=== PATIENT | female | born 1995 | race African-American/Black ===

== ENCOUNTER 2017-07-08 17:56 | Emergency (ER) | payer BC ==
[2017-07-08 19:02] LABS: BHCG - Serum POSITIVE (NEGATIVE); Pregs Control Background? CLEAR/WHITE (CLR/WHITE); Pregs Control Bar Appear? YES (CONTROL BAR)
[2017-07-08 19:33] LABS: Bilirubin Negative (Negative); Blood, Urine Negative (Negative); Clarity CLEAR (Clear); Glucose, Urine (Dipstick) Negative (Negative); Leukocyte Moderate (Negative); Nitrite Positive (Negative); Protein, Urine (Dipstick) Negative (Neg-Trace); Specific Gravity, Urine 1.022 (1.002-1.036); Urobilinogen 0.2 mg/dL (0.2-1.0)
[2017-07-08 19:36] LABS: Bacteria/HPF 4+ HPF (None Seen); Hyaline Casts/LPF 0-3 HYALINE CAST LPF (0-3 Hyaline); RBC/HPF 0-3 HPF (0-3); Squamous Epithelial 0-3 HPF (0-3); WBC/HPF 21-50 HPF (0-3)
--- NOTE | 2017-07-08 20:13 | ULT ---
PELVIC ULTRASOUND 07/08/17 COMPARISON: None. HISTORY: 21-year-old female with bleeding. TECHNIQUE: Multiplanar sun scale sonographic imaging of the pelvis obtained with transabdominal and endovaginal imaging. Ovaries are assessed with color flow and spectral analysis. FINDINGS: Uterus measures 8.5 x 4.6 x 5.0 cm. There is an intrauterine gestational sac demonstrating a po le and a yolk sac. Right ovary measures 3.8 x 1.8 x 2.2 cm and left ovary measures 3.5 x 2.3 x 2.2 cm. Blood flow is not ed within both ovaries. There is a right ovarian cyst measuring up to 1.7 cm. Trace free fluid noted in the pelvic cul-de-sac. There is a heterogeneous area of decreased echogenic ity adjacent to the gestational sac, suggesting a subchorionic hemorrhage, measuring in the 1.1 x 1.2 cm range. Dexigraph Operator demonstrates a heart rate of approximately 77, evidence of bradyca rdia, a concerning finding. BIOMETRY: CRL 0.3 cm 5 weeks, 6 days GSD 0.9 cm 5 weeks, 5 days Average aged based on ultrasound is 5 weeks, 6 days with an estimated date of delivery on 03/04/18. IMPRESSION: Intrauterine gestation noted. Subchorionic hemorrhage present. bradycardia is noted, with estim ated heart rate of 77 bpm, a concerning finding. Close followup advised. POS: [facility]
== END 2017-07-08 20:36 | disposition home or self-care (01) ==
LOC: ERS 17:56
DX: O20.0 Threatened abortion (principal); O23.41 Unspecified infection of urinary tract in pregnancy, first trimester; O98.711 Human immunodeficiency virus [HIV] disease complicating pregnancy, first trimester; Z3A.01 Less than 8 weeks gestation of pregnancy
CPT/HCPCS: 36415; 76856; 81003; 81015; 84702; 84703; 86900; 86901; 87077; 87086; 87186

== ENCOUNTER 2017-12-27 20:20 | Day surgery (SDC) | payer SELFPAY ==
[2017-12-27 21:07] VITALS: BMI 25.5
[2017-12-27] MEDS ORDERED: Lactated Ringer's 1,000 ML IV SCH (21:30)
--- NOTE | 2017-12-27 21:31 | PDOC.LDHP ---
Labor and Delivery H&P Chief complaint: other (vaginal bloody dsch when wipes, no recent trauma, no recent sex. known HIV pos patient (sees Dr Camarena)) HPI: 22 yo G1 at 30 weeks 2 days by EDC, known HIV positive of "medication"...blood only with wiping. Good FM, no CTX, no recent sex, no trauma. patient has full handwritten H&P in chart as well. review of systems: complete ROS completed and as per HPI Current gestational age (weeks): 30 (2) Dating criteria: last menstrual period Grav: 1 Para: 0 Current complications: other (HIV positive..sees Dr camarena. On meds but does not know name) Abnormal US findings: No Current medications: pre-jenn vitamins, other (HIV "pill") Previous surgical history: none Allergies/Adverse Reactions: Allergies Allergy/AdvReac Type Severity Reaction Status Date / Time No Known Allergies Allergy Verified 12/27/17 21:09 Social history: none - Physical Exam Vital signs reviewed and normal: yes General: NAD Heart: RRR Lungs: CTAB Abdomen: gravid Extremeties: no edema FHT: category 1 (Accels and reactive per EGA) [place] contractions every: irritability - Assessment HIV Positive, vag bleed with wiping..no menstrual type bleed, no clots passed...no evidence of VB now, nor on FFN swab collected - Plan Plan: observation in L&D (I have ordered 1 liter LR bolus for hydration. FFN and cervical length ordered. If suspicious for PTL by test results, we will give celestone and IV mag for neuroprotection...and consider AZT IV if suspected real PTL. We will await FFN and cervical length result. Info given to patient at bedside.)
[2017-12-27 21:52] LABS: FFN Internal QC Analyzer PASS (PASS); FFN Internal QC Cassette PASS (PASS); Fetal Fibronectin Negative (Negative)
--- NOTE | 2017-12-27 22:58 | PDOC.EVN ---
Event Note - Event Note Event Note: FFN neg, and cervical length verbal report from tech=3.5cm OK for outpatient care
--- NOTE | 2017-12-28 07:38 | ULT ---
OBSTETRICAL ULTRASOUND: DATE: 12/27/17. HISTORY: A 22-year-old female, assess cervical length. TECHNIQUE: Multiplanar, sun scale sonographic imaging of the gravid uterus obtained. FINDINGS: Cervical length is 2.7-3.3 cm. Single intrauterine gestation is present with a heart rate of 1 31 b.p.m. Amniotic fluid index is 19 cm. The placenta is located posteriorly and demonstrates no evidence for previa or abruption. position is vertex. BIOMETRY: BPD 7.2 cm, 28 weeks 6 days HC 26.1 cm, 28 weeks 3 days AC 24.8 cm, 29 weeks 0 days FL 5.7 cm, 29 weeks 6 days Average age based on ultrasound is 29 weeks 0 days with estimated date of delivery on 03/14/18. Elodia mated weight is 1361 gm +/- 201 gm. Imaged intracranial contents, spine, bladder, umbilical cord, stomach, heart, kidneys, and umbi lical cord insertion appear grossly unremarkable. nose and lips are within normal limits. IMPRESSION: Single live intrauterine gestation as detailed above. Cervical length is approximately 2.7-3.3 cm. POS: [facility]
== END 2017-12-27 23:12 | disposition home or self-care (01) ==
LOC: EEVIPCON 20:20 → L&D/OP 20:20
PROVIDERS: ATTEND Family Medicine
DX: O46.93 Antepartum hemorrhage, unspecified, third trimester (principal); O98.713 Human immunodeficiency virus [HIV] disease complicating pregnancy, third trimester; Z3A.30 30 weeks gestation of pregnancy; Z21 Asymptomatic human immunodeficiency virus [HIV] infection status
CPT/HCPCS: 76815; 82731; 96360; 96361; 99283

== ENCOUNTER 2018-02-22 21:08 | Day surgery (SDC) | payer OTHER ==
[2018-02-22 21:56] VITALS: BMI 26.5
--- NOTE | 2018-02-22 22:04 | PDOC.LDHP ---
Labor and Delivery H&P Chief complaint: loss of fluid HPI: Patient of Dr Shaw Possible LOf x1 at 1700, none since Known HIV positive, on medication, sees Dr mtz HPI: 22 yo G1 at 38 weeks 3 days with possible LOf X 1. Known HIV positive DX in 2016, on meds. No HERNÁNDEZ, no VB, no CTX Current gestational age (weeks): 38 (3 days) Due date: 03/05/18 Grav: 1 Current complications: other (HIV) Abnormal US findings: No Current medications: pre- vitamins, other (HIV meds...Name unknown) Previous surgical history: none Allergies/Adverse Reactions: Allergies Allergy/AdvReac Type Severity Reaction Status Date / Time No Known Allergies Allergy Verified 02/22/18 22:01 - Physical Exam Vital signs reviewed and normal: yes (131/87) General: NAD Heart: RRR Lungs: CTAB Abdomen: gravid (soft, NT) Extremeties: no edema FHT: category 1 [place] contractions every: irritability - Assessment HIV positive at early term with LOF X 1..amnisure sent - Plan Plan: observation in L&D (Sterile speculum exam to be performed by me. if positive, will require HIV intrapartum prophylaxis and viral load check. Will contact Zaid if admitted.)
[2018-02-22 22:16] LABS: Amnisure Test No Membranes Rupture (No Rupture)
[2018-02-22 22:17] LABS: Amnisure Internal Control QC ACCEPTABLE (ACCEPTABLE)
--- NOTE | 2018-02-22 22:20 | PDOC.EVN ---
Event Note - Event Note Event Note: amnisure is negative
--- NOTE | 2018-02-22 22:36 | PDOC.EVN ---
Event Note - Event Note Event Note: SSE with no pooling, no leakage with cough. visually 1cm at max. 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 This was explained to pt. No evidence ROM on exam and negative. I encouraged her to conitinue to take her HAART
== END 2018-02-22 22:45 | disposition home or self-care (01) ==
LOC: L&D/OP 21:08
PROVIDERS: ATTEND Family Medicine
DX: O99.89 Other specified diseases and conditions complicating pregnancy, childbirth and the puerperium (principal); N89.8 Other specified noninflammatory disorders of vagina; N88.8 Other specified noninflammatory disorders of cervix uteri; O98.713 Human immunodeficiency virus [HIV] disease complicating pregnancy, third trimester; Z21 Asymptomatic human immunodeficiency virus [HIV] infection status; Z3A.38 38 weeks gestation of pregnancy; Z79.899 Other long term (current) drug therapy
CPT/HCPCS: 84112; 99285

== ENCOUNTER 2018-03-03 05:32 | Inpatient (IN) | payer OTHER ==
[2018-03-03 06:12] VITALS: BMI 26.9
[2018-03-03 06:45] LABS: Amnisure Test RUPTURE DETECTED (No Rupture)
[2018-03-03 06:46] LABS: Amnisure Internal Control QC ACCEPTABLE (ACCEPTABLE)
[2018-03-03] MEDS ORDERED: SODIUM CHLORIDE IVPB SCH (07:45)
[2018-03-03] MEDS ORDERED: ADMIXTURE FEE IVPB SCH (07:45)
[2018-03-03] MEDS ORDERED: ZIDOVUDINE IVPB SCH (07:45)
[2018-03-03] MEDS ORDERED: Promethazine HCl 25 MG/ML VIAL IM PRN ×2 (08:13→09:47)
[2018-03-03] MEDS ORDERED: Ondansetron HCl/PF 4 MG/2 ML Vial IVP PRN ×4 (08:13→13:17)
[2018-03-03] MEDS ORDERED: CEFAZOLIN/Water 2 GM/20 ML SYRINGE SLOW IVP SCH (08:15)
[2018-03-03] MEDS ORDERED: Lactated Ringer's 1,000 ML IV SCH ×2 (08:15→13:17)
[2018-03-03] MEDS ORDERED: Bicitra 30 ML UDCUP PO SCH (08:15)
[2018-03-03] MEDS ORDERED: Morphine PF 1 MG/ML SYR ONE (08:29)
[2018-03-03 08:30] LABS: Hemoglobin 8.9 g/dL (12.0-16.0); Mean Corpuscular HGB CONC 32.5 g/dL (32.0-36.0); Mean Corpuscular Hemoglobin 28.6 pg (25.0-35.0); Mean Platelet Volume 8.9 fL (7.4-10.4); Platelet Count 235 thou/uL (130-400); RBC Distribution Width 12.2 % (11.5-14.5); Red Blood Cell (RBC) Count 3.11 mill/uL (4.00-5.20); White Blood Cell (WBC) Count 7.2 thou/uL (4.8-10.8)
[2018-03-03] MEDS ORDERED: Ketorolac Tromethamine 30 MG/ML VIAL ONE ×2 (08:30→17:05)
[2018-03-03] MEDS ORDERED: PHENYLEPHRINE-NS 100 MCG/ML 10 ML SYRINGE ONE ×2 (08:30→17:05)
[2018-03-03] MEDS ORDERED: Oxytocin 10 UNITS/ML VIAL ONE (08:30)
[2018-03-03] MEDS ORDERED: Ondansetron HCl/PF 4 MG/2 ML Vial ONE ×2 (08:30→17:05)
[2018-03-03] MEDS ORDERED: ePHEDrine/0.9% NaCl/PF SYRINGE 50 mg/10 ml ONE (08:30)
[2018-03-03] MEDS ORDERED: Lidocaine 2% 10 ML INJ ONE (08:31)
[2018-03-03] MEDS ORDERED: Bupivacaine 0.75% W/DEXTROSE 8.25% 2 ML AMP ONE (08:31)
[2018-03-03 09:05] LABS: HBSAg Index 0.21 S/CO (0-0.99); Hep B Surf Ag Non-Reactive S/CO (NonReactive); Syphilis Antibody Nonreactive (Nonreactive); Syphilis Antibody Index 0.11 S/CO (<1.00 Non-Reactive)
[2018-03-03] MEDS: SODIUM CHLORIDE 0.9% IVPB SCH ×2 (09:20→14:37)
[2018-03-03] MEDS: ZIDOVUDINE IVPB SCH ×2 (09:20→14:37)
[2018-03-03] MEDS ORDERED: Promethazine HCl 25 MG SUPP PR PRN (09:47)
[2018-03-03] MEDS ORDERED: Naloxone HCl 0.4 mg/ml Vial IVP PRN ×2 (09:47)
[2018-03-03] MEDS ORDERED: Meperidine HCl/PF 25 MG/ML VIAL SLOW IVP PRN (09:47)
[2018-03-03] MEDS ORDERED: L&D-Morphine 4 MG/ML VIAL SLOW IVP PRN (09:47)
[2018-03-03] MEDS ORDERED: HYDROmorphone 2 MG/ML VIAL SLOW IVP PRN (09:47)
[2018-03-03] MEDS ORDERED: Eucerin (Mineral Oil/Petrolatum,White) 30 gm Jar TOP PRN (09:47)
[2018-03-03] MEDS ORDERED: Naloxone HCl 0.4 mg/ml Vial IV PRN (09:47)
[2018-03-03] MEDS ORDERED: Ketorolac Tromethamine 30 MG/ML VIAL IVP SCH (10:00)
[2018-03-03] MEDS ORDERED: Communication Order-Pharmacy FS SCH (10:00)
--- NOTE | 2018-03-03 10:29 | PDOC.OPDEL ---
OB Operative/Delivery Note Delivery Dr/Surgeon: Colin Assist: Mario Pre-Delivery Diagnosis: other (SROM with high HIV viral load) Procedure/Post Delivery Dx: primary low transverse CS Anesthesia: spinal - Findings A Sex: female Weight: 2.843 kg - 1 min: 8 - 5 min: 9 - Additional Findings/Plan Placenta delivered: manual removal findings: low transverse hysterotomy without extension, normal uterus, normal tubes, normal ovaries Compilations/Other Findings: Procedure Note Date of Procedure: 03/03/2018 Primary Surgeon: Colin Unit Director Surgeon: Mario Procedure: Primary low transverse section Preoperative Diagnosis: 1)Term intrauterine 2)High viral load HIV Postoperative Diagnosis: 1)same as above Anesthesia: spinal Indications: The patient is a 22 year old G1,P0 female at 39.4 weeks gestation who presented with pre-labor rupture of membranes. Patient is HIV with viral load >4000. Decision was made to proceed with delivery. Procedure in Detail: After risks, benefits, and alternatives were explained to the patient, she gave informed consent. Pre-operative antibiotics included Cefazolin 2 gram IV. Patient was also given 103 mg of Zidovudine. The patient was taken to the operating room and spinal anesthesia was initiated. She was placed in the supine position with a left tilt and prepped and draped in usual sterile fashion. A Pfannenstiel incision was made with a scalpel and carried down to the level of the fascia which was sharply nicked. The fascial cut was extended bilaterally with Chen sissors. The inferior and superior edges of the cut fascial edges were elevated with Tejas clamps and the underlying rectus muscles were sharply and bluntly dissected free. The recti were divided digitally and retracted manually. The peritoneum was entered bluntly and retracted manually. Bladder blade was placed. A low transverse score was made with the scalpel and the uterus was entered in the midline with the scalpel. Clear fluid was seen. The hysterotomy was extended manually. The infant was noted to be vertex and was easily delivered by fundal pressure. Mouth and nares were bulb suctioned. Cord clamped and cut and grossly normal female was handed to waiting nurse. Cord segment and cord blood was obtained. Placenta was manually extracted, found to be intact with 3 vessel cord and discarded. The uterus was externalized and the endometrium was curetted with a dry lap. The bladder blade was replaced and the uterus was closed with a running locking 0-Vicryl. Following this hemostasis was noted. The abdomen was irrigated with saline and suctioned free of clots. The uterus was internalized and the hysterotomy was again noted to be hemostatic. The peritoneum was closed with 3-0 Vicryl. The fascia was closed with a running non- locking 0-PDS suture. The subcutaneous tissue was irrigated and there were no bleeders. The subcutaneous layer was closed using 3-0 Vicryl. The skin was approximated with rose and a pressure dressing was placed. All counts were correct. The patient tolerated the procedure well and was taken to the recovery room in stable condition. QBL: Complications: None Specimens: Cord blood and cord segment sent to lab for blood type Findings: Grossly normal female with apgars of 8 and 9. Grossly normal placenta with 3 vessel cord discarded. Drains: Zamorano to gravity draining clear urine Post delivery plan: routine recovery
[2018-03-03] MEDS ORDERED: Naloxone HCl 0.4 mg/ml Vial ONE (11:07)
[2018-03-03] MEDS ORDERED: diphenhydrAMINE 50 MG/ML VIAL ONE (11:08)
[2018-03-03] MEDS: diphenhydrAMINE 50 MG/ML VIAL IVP PRN ×2 (11:11→16:08)
[2018-03-03 12:08] LABS: Bilirubin Negative (Negative); Blood, Urine Small (Negative); Clarity CLEAR (Clear); Glucose, Urine (Dipstick) Negative (Negative); Leukocyte Negative (Negative); Nitrite Negative (Negative); Protein, Urine (Dipstick) Negative (Neg-Trace); pH, Urine 7.5 (5.0-9.0)
[2018-03-03 12:13] LABS: Bacteria/HPF None Seen HPF (None Seen); Hyaline Casts/LPF 0-3 HYALINE CAST LPF (0-3 Hyaline); Pathc Cast-AUWi Flag 0.43 (0-2.49); Squamous Epithelial 0-3 HPF (0-3); WBC/HPF 0-3 HPF (0-3)
[2018-03-03 12:14] LABS: Renal Epithelial None Seen HPF (0-3); Transitional Epithelial 0-3 HPF (0-3)
[2018-03-03] MEDS: NS / Oxytocin 40 units/1000ml 1,000 ML IV SCH (12:15)
[2018-03-03] MEDS ORDERED: Meperidine HCl/PF 25 MG/ML VIAL ONE (12:25)
[2018-03-03] MEDS: cloNIDine 0.1 MG TAB PO PRN ×2 (12:55→17:07)
[2018-03-03] MEDS ORDERED: Simethicone Chewable 80 MG TAB PO PRN (13:17)
[2018-03-03] MEDS ORDERED: Ferrous Sulfate 325 MG TAB PO SCH (13:17)
[2018-03-03] MEDS ORDERED: Adacel (T-DAP) 0.5 ML VIAL IM ONE (13:17)
[2018-03-03] MEDS ORDERED: NS / Oxytocin 40 units/1000ml 1,000 ML IV SCH (13:17)
[2018-03-03] MEDS ORDERED: Docusate Calcium (SURFAK) 240 MG CAP PO SCH (13:17)
[2018-03-03] MEDS ORDERED: Bisacodyl 10 MG SUPP PR PRN (13:17)
[2018-03-03] MEDS ORDERED: Prenatal Vitamin 1 TAB PO SCH (13:17)
[2018-03-03] MEDS: Ibuprofen 800 MG TAB PO SCH (14:33)
[2018-03-03] MEDS: Sodium Chloride 0.9% 1,000 ML IV SCH (14:35)
[2018-03-03] MEDS ORDERED: Meperidine HCl/PF 25 MG/ML VIAL IM PRN (23:00)
[2018-03-03] MEDS ORDERED: HYDROcodone/Acetaminophen 5/325 mg Tablet PO PRN ×2 (23:00)
[2018-03-03] MEDS: Ketorolac Tromethamine 30 MG/ML VIAL IVP PRN (23:55)
[2018-03-04] MEDS: NS / Oxytocin 40 units/1000ml 1,000 ML IV SCH ×4 (00:58→15:36)
[2018-03-04] MEDS: Docusate Calcium (SURFAK) 240 MG CAP PO SCH ×3 (00:58→22:00)
[2018-03-04] MEDS: Ibuprofen 800 MG TAB PO SCH ×4 (00:59→22:00)
[2018-03-04] MEDS: Ferrous Sulfate 325 MG TAB PO SCH ×2 (00:59→09:57)
[2018-03-04 04:58] LABS: Hemoglobin 7.6 g/dL (12.0-16.0); Mean Corpuscular HGB CONC 32.3 g/dL (32.0-36.0); Mean Corpuscular Hemoglobin 28.4 pg (25.0-35.0); Mean Corpuscular Volume 87.8 fL (78.0-98.0); Mean Platelet Volume 8.9 fL (7.4-10.4); Platelet Count 221 thou/uL (130-400); RBC Distribution Width 12.3 % (11.5-14.5); Red Blood Cell (RBC) Count 2.69 mill/uL (4.00-5.20); White Blood Cell (WBC) Count 9.7 thou/uL (4.8-10.8)
[2018-03-04] MEDS: Prenatal Vitamin 1 TAB PO SCH (09:56)
[2018-03-04] MEDS: Ketorolac Tromethamine 30 MG/ML VIAL IVP PRN (09:57)
[2018-03-04] MEDS: Sodium Chloride 0.9% 1,000 ML IV SCH (11:24)
[2018-03-05] MEDS: Ferrous Sulfate 325 MG TAB PO SCH ×2 (02:55→09:40)
[2018-03-05] MEDS: NS / Oxytocin 40 units/1000ml 1,000 ML IV SCH ×2 (06:22→09:52)
[2018-03-05] MEDS: Ibuprofen 800 MG TAB PO SCH ×3 (06:23→21:35)
[2018-03-05] MEDS: Prenatal Vitamin 1 TAB PO SCH (09:40)
[2018-03-05] MEDS: Docusate Calcium (SURFAK) 240 MG CAP PO SCH ×2 (09:40→21:35)
[2018-03-05] MEDS: Sodium Chloride 0.9% 1,000 ML IV SCH (09:52)
[2018-03-06] MEDS: Ferrous Sulfate 325 MG TAB PO SCH ×2 (05:16→09:14)
[2018-03-06] MEDS: NS / Oxytocin 40 units/1000ml 1,000 ML IV SCH ×3 (05:16→09:15)
[2018-03-06] MEDS: Ibuprofen 800 MG TAB PO SCH (06:28)
[2018-03-06 07:52] VITALS: BP 123/81; TEMP 98.3
[2018-03-06] MEDS: Prenatal Vitamin 1 TAB PO SCH (09:14)
[2018-03-06] MEDS: Docusate Calcium (SURFAK) 240 MG CAP PO SCH (09:14)
[2018-03-06] MEDS: Sodium Chloride 0.9% 1,000 ML IV SCH (09:15)
== END 2018-03-06 14:15 | disposition home or self-care (01) | DRG 787 ==
LOC: L&D/OP 05:32 → L&D 08:44 → 3SW 13:02
PROVIDERS: ADMIT Family Medicine; ATTEND Family Medicine
PROC: 10D00Z1 Extraction of Products of Conception, Low, Open Approach (ICD-10-PCS; principal; 2018-03-03)
DX: O98.72 Human immunodeficiency virus [HIV] disease complicating childbirth (principal); B20 Human immunodeficiency virus [HIV] disease; Z3A.39 39 weeks gestation of pregnancy; Z37.0 Single live birth; O13.4 Gestational [pregnancy-induced] hypertension without significant proteinuria, complicating childbirth
CPT/HCPCS: 36415; 51702; 81003; 81015; 84112; 85027; 86780; 86850; 86900; 86901; 87340; 88307; 99285; J1200; J1885; J2175; J2274; J2310; J2405; J2590; J3485; J3490; J7050

== ENCOUNTER 2018-11-23 12:46 | Emergency (ER) | payer OTHER ==
[2018-11-23] MEDS ORDERED: Fluorescein Opthalmic Strip ONE (14:33)
[2018-11-23] MEDS ORDERED: Proparacaine 0.5% Opth 15 ML BOT ONE (14:33)
== END 2018-11-23 14:15 | disposition home or self-care (01) ==
LOC: ERS 12:46
DX: S16.1XXA Strain of muscle, fascia and tendon at neck level, initial encounter (principal); B20 Human immunodeficiency virus [HIV] disease; W22.8XXA Striking against or struck by other objects, initial encounter
CPT/HCPCS: 99283

== ENCOUNTER 2019-10-14 11:32 | Day surgery (SDC) | payer OTHER ==
[2019-10-14 12:04] VITALS: BMI 25.7
[2019-10-14] MEDS ORDERED: Promethazine HCl 25 MG/ML VIAL IM PRN (12:18)
[2019-10-14] MEDS ORDERED: Docusate 100 MG CAP PO PRN (12:18)
[2019-10-14] MEDS ORDERED: hydrALAZINE 20 MG/ML VIAL SLOW IVP PRN (12:18)
[2019-10-14] MEDS ORDERED: Ondansetron PF 4 MG/2 ML Vial IVP PRN (12:18)
[2019-10-14] MEDS ORDERED: Betamet Acet/Betamet Na Ph 30 MG/5 ML VIAL IM SCH (13:00)
--- NOTE | 2019-10-14 14:14 | ULT ---
EXAM: OB ultrasound Umbilical artery Doppler evaluation and spectral analysis COMPARISON: None HISTORY: 31 week gestation. No care. Elevated blood pressure. TECHNIQUE: Multiplanar grayscale and color Doppler transabdominal sonographic images are obtained. FINDINGS: There is a single intrauterine gestation in cephalic presentation. Cardiac Doppler demonstr ates heart tones with a heart rate of 137 beats per minute. The placenta is located anteriorly without evidence of placenta previa without evidence of placenta previa. There is a normal amount of amniotic fluid with an amniotic fluid index of 9.3 centimeters. biometry measurements: BPD 7.53 cm -- 30 weeks 1 day HC 28.34 cm -- 31 weeks 1 day AC 27.19 cm -- 31 weeks 2 days FL 5.89 cm -- 30 weeks 5 days The estimated gestational age by ultrasound is 30 weeks 6 days with an LINDA on12/17/2019. Gestational a ge by the last menstrual period is 31 weeks 3 days. The estimated weight by ultrasound is 1680 g (3 pounds, 11 ounces). This represents 25 percenti le for weight. anatomical structures were not evaluated on this exam. A score of 2 was obtained each for tone, breathing, movements, and amniotic fluid v olume Umbilical artery Doppler evaluation with spectral analysis: Umbilical artery at level of the fetus: Peak systolic velocity 145.4 cm/s, end-diastolic velocity 42. 1 cm/s, systolic to diastolic ratio 3.45, pulsatility index 1.14, resistive index 0.71 Mid umbilical artery: Peak systolic velocity 147.4 cm/s, end-diastolic velocity 54.1 cm/s, systolic t o diastolic ratio 2.72, pulsatility index 0.95, resistive index 0.63 Umbilical artery at level of placenta: Peak systolic velocity 69.2 cm/s, end-diastolic velocity 29.1 cm/s, systolic to diastolic ratio 2.38, pulsatility index 0.88, resistive index 0.58 IMPRESSION: 1. Single intrauterine gestation in cephalic presentation with heart tones documented. Estimat ed gestational age by ultrasound is 30 weeks 6 days with LINDA on 12/17/2019. 2. Estimated weight is 1680 g (3 pounds, 11 ounces). 3. Amniotic fluid index is 9.3 centimeters. 4. A total biophysical profile score of 8 out of 8 is obtained. 5. Umbilical artery Doppler evaluation is described above.
[2019-10-14 15:01] LABS: Creatinine, Urine 104.83 mg/dL (47-110)
[2019-10-14 15:19] LABS: HBSAg Index 0.16 S/CO (0-0.99); Hep B Surf Ag Non-Reactive S/CO (NonReactive); Syphilis Antibody Nonreactive (Nonreactive); Syphilis Antibody Index 0.09 S/CO (<1.00 Non-Reactive)
== END 2019-10-14 18:44 | disposition home health service (06) ==
LOC: L&D/OP 11:32
DX: O99.89 Other specified diseases and conditions complicating pregnancy, childbirth and the puerperium (principal); R03.0 Elevated blood-pressure reading, without diagnosis of hypertension; Z3A.31 31 weeks gestation of pregnancy
CPT/HCPCS: 36415; 76815; 76819; 82570; 84156; 86780; 86850; 86900; 86901; 87340; 87536; 93975; J0702

== ENCOUNTER 2019-11-29 09:20 | Inpatient (IN) | payer OTHER ==
[2019-11-29] MEDS ORDERED: hydrALAZINE 20 MG/ML VIAL ONE (10:03)
[2019-11-29] MEDS ORDERED: Ondansetron PF 4 MG/2 ML Vial IVP PRN ×2 (10:10→18:51)
[2019-11-29] MEDS ORDERED: hydrALAZINE 20 MG/ML VIAL SLOW IVP PRN (10:10)
[2019-11-29] MEDS ORDERED: Promethazine HCl 25 MG/ML VIAL IM PRN ×2 (10:10→18:51)
[2019-11-29] MEDS ORDERED: Azithromycin 500 MG in Sodium Chloride 0.9% 250 ML 250 ML IVPB SCH (10:15)
[2019-11-29] MEDS ORDERED: CEFAZOLIN 2 GM in Premix Bag 1 BAG IVPB SCH (10:15)
[2019-11-29] MEDS ORDERED: Bicitra 30 ML UDCUP PO SCH (10:15)
[2019-11-29 10:16] VITALS: BMI 27.3
[2019-11-29 10:32] LABS: Hemoglobin 7.6 g/dL (12.0-16.0); Mean Corpuscular HGB CONC 30.6 g/dL (32.0-36.0); Mean Corpuscular Hemoglobin 24.1 pg (27.0-31.0); Mean Corpuscular Volume 78.7 fL (78.0-98.0); Mean Platelet Volume 9.8 fL (7.4-10.4); Platelet Count 242 thou/uL (130-400); RBC Distribution Width 16.6 % (11.5-14.5); Red Blood Cell (RBC) Count 3.15 mill/uL (4.20-5.40); White Blood Cell (WBC) Count 6.4 thou/uL (4.8-10.8)
[2019-11-29] MEDS: Lactated Ringer's 1,000 ML IV SCH (10:47)
[2019-11-29] MEDS ORDERED: Zidovudine 200 MG/20 ML VIAL IVPB SCH ×2 (11:00→12:00)
[2019-11-29 11:17] LABS: HBSAg Index 0.12 S/CO (0-0.99); Hep B Surf Ag Non-Reactive S/CO (NonReactive)
[2019-11-29 11:18] LABS: ALT (SGPT) 21 U/L (8-55); AST (SGOT) 23 U/L (5-34); Albumin 3.1 g/dL (3.5-5.0); Alkaline Phosphatase 209 U/L (40-110); Anion Gap 10 mmol/L (10-20); BUN (Urea Nitrogen) 4 mg/dL (7.0-18.7); Bilirubin, Total 0.2 mg/dL (0.2-1.2); Calc. Creatinine Clearance 132 mL/min (70-130); Calcium 7.9 mg/dL (7.8-10.44); Carbon Dioxide 22 mmol/L (22-29); Chloride 107 mmol/L (98-107); Estimated GFR-MDRD Greater than 90; Globulin 4.4 g/dL (2.4-3.5); Glucose 77 mg/dL (70-105); Potassium 4.2 mmol/L (3.5-5.1); Protein, Total 7.5 g/dL (6.0-8.3); Sodium 135 mmol/L (136-145)
[2019-11-29 11:19] LABS: Syphilis Antibody Nonreactive (Nonreactive); Syphilis Antibody Index 0.06 S/CO (<1.00 Non-Reactive)
[2019-11-29] MEDS: SODIUM CHLORIDE 0.9% IVPB SCH ×6 (11:27→16:32)
[2019-11-29] MEDS: ZIDOVUDINE IVPB SCH ×6 (11:27→16:32)
[2019-11-29 13:23] LABS: Amphetamine Not Detected (NotDetected); Barbiturates Screen Not Detected (NotDetected); Benzodiazepine Screen Not Detected (NotDetected); Cocaine Metabolite Screen Not Detected (NotDetected); Medtox Control Line Valid? VALID (VALID); Medtox Reader # READER 1; Methadone Not Detected (NotDetected); Methamphetamine Not Detected (NotDetected); Opiate Screen Not Detected (NotDetected); Oxycodone Screen Not Detected (NotDetected); Phencyclidine (PCP) Not Detected (NotDetected); THC/Cannabinoid Screen Not Detected (NotDetected); Tricyclic Screen Not Detected (NotDetected)
[2019-11-29] MEDS ORDERED: Famotidine/PF 20 mg/2ml Vial SLOW IVP SCH (14:15)
[2019-11-29] MEDS ORDERED: MORPHINE 5 MG/10 ML PF VIAL ONE (18:10)
[2019-11-29] MEDS ORDERED: Ondansetron PF 4 MG/2 ML Vial ONE (18:11)
[2019-11-29] MEDS ORDERED: Oxytocin 10 UNITS/ML VIAL ONE ×2 (18:11→18:12)
[2019-11-29] MEDS ORDERED: PHENYLEPHRINE-NS 100 MCG/ML 10 ML SYRINGE ONE (18:11)
[2019-11-29] MEDS ORDERED: Dexamethasone 4 mg/ml Vial ONE (18:11)
[2019-11-29] MEDS ORDERED: EPHEDRINE 25 MG/5 ML SYRINGE ONE (18:28)
[2019-11-29] MEDS ORDERED: Ketorolac Tromethamine 30 MG/ML VIAL IVP PRN (18:51)
[2019-11-29] MEDS ORDERED: Ondansetron HCl/PF 4 MG/2 ML Vial IVP PRN (18:51)
[2019-11-29] MEDS ORDERED: Naloxone HCl 0.4 mg/ml Vial IV PRN (18:51)
[2019-11-29] MEDS ORDERED: diphenhydrAMINE 50 MG/ML VIAL IVP PRN (18:51)
[2019-11-29] MEDS ORDERED: HYDROmorphone 2 MG/ML VIAL SLOW IVP PRN (18:51)
[2019-11-29] MEDS ORDERED: Promethazine HCl 25 MG SUPP PR PRN (18:51)
[2019-11-29] MEDS ORDERED: L&D-Morphine 4 MG/ML VIAL SLOW IVP PRN (18:51)
[2019-11-29] MEDS ORDERED: Meperidine HCl/PF 25 MG/ML VIAL SLOW IVP PRN (18:51)
[2019-11-29] MEDS ORDERED: Naloxone HCl 0.4 mg/ml Vial IVP PRN ×2 (18:51)
[2019-11-29] MEDS ORDERED: Ketorolac Tromethamine 30 MG/ML VIAL IVP SCH (19:00)
[2019-11-29] MEDS ORDERED: Communication Order-Pharmacy FS SCH (19:00)
[2019-11-29] MEDS ORDERED: Calcium Gluconate 4.6 MEQ in Sodium Chloride 0.9% 100 ML IVPB PRN (19:18)
[2019-11-29] MEDS ORDERED: Magnesium Sulfate 20 gm/500 ml 20 GM/500 ML BAG ONE (19:21)
--- NOTE | 2019-11-29 19:22 | PDOC.OPDEL ---
OB Operative/Delivery Note Delivery Dr/Surgeon: Dr. Shaw Assist: Dr. Walker Pre-Delivery Diagnosis: scheduled section, other (HIV +) Weeks gestation: 38 Anesthesia: spinal - Findings A Sex: male - 1 min: 8 - 5 min: 9 - Additional Findings/Plan Placenta delivered: manual removal findings: low transverse hysterotomy without extension, normal uterus, normal tubes, normal ovaries Estimated blood loss: 436 Compilations/Other Findings: Date of Procedure: 11/29/2019 @ 1838 Attending Surgeon: Dr. Shaw Experience Design Director Surgeon: Dr. Walker Procedure: Repeat low transverse caesarean section Preoperative Diagnosis: 1)Term intrauterine 2)Previous 3)HIV + status Postoperative Diagnosis: 1)same as above Anesthesia: spinal Indications: The patient is a 24yo year old female at 38 weeks gestation who presents for a repeat scheduled . Procedure in Detail: After risks, benefits, and alternatives were explained to the patient, she gave informed consent. Pre-operative antibiotics included Cefazolin 2 gram IV. The patient was taken to the operating room and spinal anesthesia was initiated. She was placed in the supine position with a left tilt and prepped and draped in usual sterile fashion. A Pfannenstiel incision was made with a scalpel and carried down to the level of the fascia which was sharply nicked. The fascial cut was extended bilaterally with Chen sissors. The inferior and superior edges of the cut fascial edges were elevated with Tejas clamps and the underlying rectus muscles were sharply and bluntly dissected free. The recti were divided digitally and retracted manually. The peritoneum was entered and retracted manually. Bladder blade was placed. A low transverse score was made with the scalpel and the uterus was entered in the midline with the scalpel. Clear fluid was seen. The hysterotomy was extended manually. The was noted to be vertex and was easily delivered by fundal pressure. Mouth and nares were bulb suctioned. Cord clamped and cut and grossly normal male infant was handed to waiting nurse. Cord blood was obtained. Placenta was manually extracted, found to be intact with 3 vessel cord and discarded. The uterus was externalized and the endometrium was curetted with a dry lap. The bladder blade was replaced and the uterus was closed with a running locking 1-0 monocryl suture. Following this hemostasis was noted. The abdomen was irrigated with saline and suctioned free of clots. The uterus was internalized and the hysterotomy was again noted to be hemostatic. Seprafilm was applied to the hysterotomy and anterior surface of the uterus. The peritoneal cavity was closed with a loose non locking 3-0 Vicryl. The fascia was closed with a running non-locking 0 PDS. The subcutaneous tissue was irrigated and there were no bleeders. The subcutaneous layers were approximated with simple interrupted 3 -0 vicryl sutures. The skin was approximated with rose and a pressure dressing was placed. All counts were correct. The patient tolerated the procedure well and was taken to the recovery room in stable condition. Quantified Blood Loss: 436 ml Complications: None Specimens: Cord blood sent to lab for blood type Findings: Grossly normal male infant with Apgars of 8 and 9. Grossly normal placenta with 3 vessel cord discarded. Drains: Zamorano to gravity draining clear urine Post delivery plan: routine recovery
[2019-11-29] MEDS ORDERED: Magnesium Sulfate 20 GM/WATER 500 ML BAG IVPB SCH (19:30)
[2019-11-29] MEDS: Magnesium Sulfate 20 gm/500 ml 20 GM/500 ML BAG IVPB SCH (20:00)
[2019-11-30] MEDS: Lactated Ringer's 1,000 ML IV SCH ×2 (01:48→13:16)
[2019-11-30] MEDS: Magnesium Sulfate 20 gm/500 ml 20 GM/500 ML BAG IVPB SCH ×2 (03:38→13:16)
[2019-11-30] MEDS ORDERED: diphenhydrAMINE 25 MG CAP PO PRN (08:15)
[2019-11-30] MEDS ORDERED: hydrALAZINE 20 MG/ML VIAL SLOW IVP PRN ×2 (08:15→21:35)
[2019-11-30] MEDS ORDERED: NS / Oxytocin 40 units/1000ml 1,000 ML IV SCH (08:15)
[2019-11-30] MEDS ORDERED: Ondansetron PF 4 MG/2 ML Vial IVP PRN (08:15)
[2019-11-30] MEDS ORDERED: Promethazine HCl 25 MG/ML VIAL IM PRN (08:15)
[2019-11-30] MEDS ORDERED: Bisacodyl 10 MG SUPP PR PRN (08:15)
[2019-11-30] MEDS ORDERED: HYDROcodone/Acetaminophen 5/325 mg Tablet PO PRN ×2 (08:15)
[2019-11-30] MEDS ORDERED: Meperidine HCl/PF 25 MG/ML VIAL IM PRN (08:15)
[2019-11-30 08:59] LABS: Hemoglobin 9.9 g/dL (12.0-16.0); Mean Corpuscular Hemoglobin 25.9 pg (27.0-31.0); Mean Platelet Volume 9.7 fL (7.4-10.4); Platelet Count 212 thou/uL (130-400); RBC Distribution Width 16.7 % (11.5-14.5); Red Blood Cell (RBC) Count 3.82 mill/uL (4.20-5.40); White Blood Cell (WBC) Count 12.9 thou/uL (4.8-10.8)
[2019-11-30] MEDS ORDERED: Famotidine/PF 20 mg/2ml Vial SLOW IVP SCH (09:00)
[2019-11-30] MEDS: Ferrous Sulfate 325 MG TAB PO SCH ×2 (10:12→21:58)
[2019-11-30] MEDS: Docusate Calcium (SURFAK) 240 MG CAP PO SCH ×2 (10:12→21:50)
[2019-11-30] MEDS: Prenatal Vitamin 1 TAB PO SCH (10:12)
[2019-11-30] MEDS: Simethicone Chewable 80 MG TAB PO PRN ×2 (10:31→21:50)
[2019-11-30] MEDS: cloNIDine 0.1 MG TAB PO PRN ×2 (10:31→20:25)
[2019-11-30] MEDS: ZIDOVUDINE IVPB SCH ×2 (14:58→14:59)
[2019-11-30] MEDS: SODIUM CHLORIDE 0.9% IVPB SCH ×2 (14:58→14:59)
[2019-11-30] MEDS: Ketorolac Tromethamine 30 MG/ML VIAL IVP SCH ×3 (21:47→21:51)
[2019-11-30] MEDS: Ibuprofen 800 MG TAB PO SCH (21:58)
[2019-12-01] MEDS: Simethicone Chewable 80 MG TAB PO PRN ×2 (06:08→21:54)
[2019-12-01] MEDS: Ibuprofen 800 MG TAB PO SCH ×3 (06:08→21:53)
[2019-12-01] MEDS ORDERED: Adacel (T-DAP) 0.5 ML SYRINGE IM ONE (08:15)
[2019-12-01] MEDS: Prenatal Vitamin 1 TAB PO SCH (09:41)
[2019-12-01] MEDS: Docusate Calcium (SURFAK) 240 MG CAP PO SCH ×2 (09:42→21:53)
[2019-12-01] MEDS: Ferrous Sulfate 325 MG TAB PO SCH ×2 (09:43→21:53)
[2019-12-01] MEDS: cloNIDine 0.1 MG TAB PO PRN ×2 (17:25→23:54)
[2019-12-02] MEDS: Ibuprofen 800 MG TAB PO SCH (05:33)
[2019-12-02] MEDS: cloNIDine 0.1 MG TAB PO PRN (08:10)
[2019-12-02] MEDS ORDERED: Losartan/Hydrochlorothiazide 100 mg/25 mg Tablet PO SCH (09:00)
[2019-12-02] MEDS: Prenatal Vitamin 1 TAB PO SCH (09:31)
[2019-12-02] MEDS: Ferrous Sulfate 325 MG TAB PO SCH (09:31)
[2019-12-02] MEDS: Docusate Calcium (SURFAK) 240 MG CAP PO SCH (09:31)
[2019-12-02 11:32] VITALS: BP 128/72; TEMP 98.1
[2019-12-02 22:12] LABS: LOG10 HIV-1 RNA 3.672 (.)
== END 2019-12-02 13:55 | disposition home or self-care (01) | DRG 787 ==
LOC: L&D 09:20 → 3SW 11-30 21:33
PROVIDERS: ADMIT Family Medicine; ATTEND Family Medicine
PROC: 10D00Z1 Extraction of Products of Conception, Low, Open Approach (ICD-10-PCS; principal; 2019-11-29)
PROC: 30233N1 Transfusion of Nonautologous Red Blood Cells into Peripheral Vein, Percutaneous Approach (ICD-10-PCS; 2019-11-29)
DX: O34.211 Maternal care for low transverse scar from previous cesarean delivery (principal); O98.72 Human immunodeficiency virus [HIV] disease complicating childbirth; Z3A.38 38 weeks gestation of pregnancy; Z37.0 Single live birth; Z21 Asymptomatic human immunodeficiency virus [HIV] infection status
CPT/HCPCS: 36415; 36430; 51701; 80053; 80306; 82570; 83735; 84156; 85027; 86762; 86780; 86850; 86900; 86901; 87340; 87536; 88307; 99285; J0360; J1100; J1885; J2274; J2405; J2590; J3475; J3485; J3490; P9016; S0028